=== PATIENT | male | born 1985 | race Caucasian/White ===

== ENCOUNTER 2017-08-04 08:40 | Day surgery (SDC) | payer OTHER ==
[2017-08-04] VITALS (13 sets, daily range): BP systolic 113–137; BP diastolic 65–76; PULSE 63–86; RESP 12–18; Ht 182.9 cm; Wt 82.6 kg
[~2017-08-04] VITALS: Ht 182.9 cm; Wt 82.6 kg
[2017-08-04] MEDS ORDERED: SUCCINYLCHOLINE CHLORIDE 100 MG/5 ML SYG IV ONE (10:39)
[2017-08-04] MEDS ORDERED: ROCURONIUM 50 MG INJ ONE (10:39)
[2017-08-04] MEDS ORDERED: PROPOFOL 20 ML ONE (10:39)
[2017-08-04] MEDS ORDERED: FENTAnyl 50 MCG/ML VIAL ONE (10:40)
[2017-08-04] MEDS ORDERED: ONDANSETRON 4 MG INJ ONE (10:40)
[2017-08-04] MEDS ORDERED: CEFAZOLIN 1 GM INJ ONE (10:40)
[2017-08-04] MEDS ORDERED: BUPIVACAINE 0.25% (MPF) 30 ML INJ ONE (10:45)
--- NOTE | 2017-08-04 11:25 | PREOPHP ---
DATE OF ADMISSION: 08/04/2017 HISTORY OF PRESENT ILLNESS: Rajinder is a 31-year-old healthy male who has a history of a right hydro matt. He has noted that the right side of his hemiscrotum has enlarged and thus a followup scrotal ultrasound was obtained. Scrotal ultrasound on 05/04/2017 demonstrates a 4 mm hypoechoic vascular m ass in the mid pole of the right testicle which is suspicious for neoplasm. His physical examinatio n was within normal limits. A followup scrotal ultrasound was then obtained on 06/17/2017 which dem onstrates in the medial aspect of the right testicle the same lesion is noted. This is hypoechoic a nd slightly vascular measuring 5 x 5 x 4 mm that is well marginated and is suspicious for neoplasm. The patient presents today for right radical orchiectomy. PAST MEDICAL HISTORY: None. PAST SURGICAL HISTORY: Appendectomy, hernia repair. MEDICATIONS: None. ALLERGIES: NONE. PHYSICAL EXAMINATION: LUNGS: Good breath sounds bilaterally. HEART: Regular rate and rhythm. ABDOMEN: Soft, nondistended, no palpable masses. Flank: No CVA tenderness, no masses. GENITALIA: Normal shaft penis, testicles and epididymis. IMPRESSION: Right testicular lesion on ultrasound x2 which has been present and is concerning for n eoplasm. PLAN: Right radical orchiectomy. How the procedure is performed, potential complications, side eff ects and anesthetic risks have been reviewed. Additionally, we discussed on multiple occasions that this represents a small lesion where most testicular carcinoma is present with a larger lesion that definitive potential that this represents a benign process has additionally been reviewed. We revi ewed alternative options to surgical intervention, including a second opinion and active surveillanc e with serial monitoring including physical examination and imaging. The patient has been very conc erned about the potential for carcinoma and thus at this juncture is requesting removal of the testi regina. He definitively understands that this may be a benign and noncancerous process. All potential complications including but not limited to infection, pain, blood loss, erectile dysfunction, loss of testosterone production, injury to surrounding organs, urinary retention, potential secondary pro cedure, yoli and postoperative course have all been discussed. All questions have been answered, di rected. Consent has been reviewed and signed in the office. All questions have been answered. The re has been no interval change in his health or physical exam. Dictated By: TERRIE PINEDA/LILIAN Conf#: [id number] DID#: [id number]
[2017-08-04] MEDS ORDERED: HYDROmorphONE (0.2 MG/ML) 10ML SYG IV PRN ×2 (11:30)
[2017-08-04] MEDS ORDERED: FENTAnyl 50 MCG/ML VIAL IV PRN ×2 (11:30)
[2017-08-04] MEDS ORDERED: MEPERIDINE 25 MG INJ IV PRN (11:30)
[2017-08-04] MEDS ORDERED: ONDANSETRON 4 MG INJ IV PRN (11:30)
--- NOTE | 2017-08-04 12:02 | PDOCDIS ---
Discharge Instructions DIAGNOSIS Discharge Diagnosis Right testicle mass CONDITION Patient Condition: Good HOME CARE INSTRUCTIONS: Diet Instructions: Regular ACTIVITY: Activity Restrictions: Slowly Increase Activity FOLLOW UP/APPOINTMENTS Follow-up Plan 2 weeks, call for date and time OTHER ORDERS: Other Orders: keep dressing dry for 3 days SCHOOL/WORK RELEASE May return to School/Work on: Aug 18, 2017 TERRIE BOTELLO Aug 04, 2017 12:02
--- NOTE | 2017-08-04 12:07 | OPR ---
Date/Time of Note Date/Time of Note DATE: 08/04/17 TIME: 12:05 Operative Report Procedure Date: Aug 04, 2017 Preoperative Diagnosis right testicle mas Postoperative Diagnosis same Operation/Procedure Performed right radical orchiectomy Surgeon fabricio Premix Operator Concentrate none Anesthesia Type: general Estimated Blood Loss: none Transfusion none Specimen right testicle and chord Grafts/Implants none Tubes/Drains none Complications none Pt Condition Post Procedure: stable Disposition: PACU Indications right testicel mass suspicious for cancer on 2 US Procedure Description dictation number [id number] TERRIE BOTELLO Aug 04, 2017 12:07
--- NOTE | 2017-08-04 12:20 | OPR ---
DATE OF OPERATION: BRIEF HISTORY: Rajinder is a 31-year-old male noted to have a persistent lesion on ultrasound, which is suspicious for carcinoma. He presents for right radical orchiectomy, understands the potential c omplications associated with the procedure as well as morbidity and the definitive potential that th is represents a benign finding. PREOPERATIVE DIAGNOSIS: Right testicular mass. POSTOPERATIVE DIAGNOSIS: Right testicular mass. OPERATION PERFORMED: Right radical orchiectomy. SURGEON: Tree Cuevas MD ANESTHESIA: General. COMPLICATIONS: None. ESTIMATED BLOOD LOSS: Negligible. SPECIMEN: Right testicle and cord structure. DESCRIPTION OF PROCEDURE: The patient was brought into the operating room and placed on the operati ng room table in supine position. He was prepped and draped in the usual fashion after anesthesia w as induced. A timeout was undertaken. Preoperative antibiotic therapy was initiated and sequential compression devices were applied. Physical examination under anesthesia demonstrates a normal test icle bilaterally. In the right lower quadrant, a 3-cm incision was created overlying the right ingu inal canal parallel to the external oblique. Incision was taken down through Lakhwinder's fascia, thus exposing the aponeurosis of the external oblique, which was opened in its diathesis thus preserving the underlying ilioinguinal nerve which was identified and preserved throughout the entire case. Th e cord structures were from the surrounding structures, which then allowed deliverance of the testicle and the cord structure. The cord structure was freed up to the level of the internal r ing, at which point the base was doubly ligated with 0 silk suture. The distal aspect was placed on a clamp and subsequently cord structure was cut. Pinpoint hemostasis was obtained. The specimen w as sent for pathology. The aponeurosis of the external oblique was then closed with a running stitc h of 3-0 Vicryl suture. Scarpas fascia reapproximated with interrupted 3-0 Vicryl suture. Skin edg es reapproximated with 3-0 Vicryl suture. Dermabond was applied to the skin as well as a dressing a nd Tegaderm. Scrotal support was applied. He tolerated the procedure well and transferred to the ecovery room in stable condition. The sponge and needle count were all correct. He will be given a prescription for [place] 5/325 one to 2 tabs p.o. q. 4 hours, dispense #40, no refill. He will follo w up in the office in 2 weeks' time. Postoperative limitations and instructions given. All questio ns answered. Dictated By: TREE PINEDA/NTS Conf#: [id number] DID#: [id number]
[2017-08-04] MEDS: HYDROmorphONE (0.2 MG/ML) 10ML SYG IV PRN ×2 (12:22→12:29)
== END 2017-08-04 14:33 | disposition home or self-care (01) ==
LOC: SDS 08:40
PROVIDERS: ATTEND Urology
DX: D29.21 Benign neoplasm of right testis (principal)
CPT/HCPCS: 54530; 88307; J0690; J1170; J2175; J2405; J3010; Z7512; Z7610